=== PATIENT | male | born 1965 | race Caucasian/White ===

== ENCOUNTER 2017-11-25 22:54 | Emergency (ER) | payer OTHER ==
[2017-11-26] MEDS: KETOROLAC 60 MG INJ IM (02:46)
== END 2017-11-26 03:45 | disposition home or self-care (01) ==
LOC: FTE 22:54
DX: M54.5 Low back pain (principal); I10 Essential (primary) hypertension; E11.9 Type 2 diabetes mellitus without complications
CPT/HCPCS: 72100; 96372; 99284-25

== ENCOUNTER 2018-04-07 09:05 | Day surgery (SDC) | payer OTHER ==
[2018-04-07] MEDS ORDERED: FENTAnyl 50 MCG/ML VIAL (11:49)
[2018-04-07] MEDS ORDERED: MIDAZOLAM 1 MG/ML 2 ML INJ ×2 (11:49)
== END 2018-04-07 12:42 | disposition home or self-care (01) ==
LOC: GIL 09:05
DX: K92.1 Melena (principal); D12.6 Benign neoplasm of colon, unspecified; K64.8 Other hemorrhoids; I10 Essential (primary) hypertension; E11.9 Type 2 diabetes mellitus without complications
CPT/HCPCS: 45380; 82962; 88305